=== PATIENT | female | born 1955 | race Caucasian/White ===

== ENCOUNTER 2024-03-18 09:31 | Day surgery (SDC) | payer MEDICARE, OTHER, SELFPAY ==
[2024-03-10 12:52] VITALS: BMI 31.8
[2024-03-18] VITALS (8 sets, daily range): BP systolic 125–174; BP diastolic 74–93; PULSE 69–82; RESP 10–16; TEMP 36.2–36.3; O2SAT 6–99
--- NOTE | 2024-03-18 | PATH_ITS ---
[facility] Accession Number: [id number] No. of containers..01 Tissue . 01 Material submitted: . fallopian tube - LEFT FALLOPIAN TUBE . 01 Diagnosis: A. LEFT FALLOPIAN TUBE, LEFT SALPINGECTOMY: Cross-sections of fallopian tube with atrophic changes. Negative for dysplasia or malignancy. [facility] 03/22/2024 1616 Local . 01 Electronically signed: . Laurie Ramos MD, Pathologist NPI- [id number] . 01 Gross description: . Received in formalin with two identifiers and left fallopian tube, is an irregular violaceous soft tissue fragment 1.6 x 0.9 x 0.6 cm. No fimbriae or distinct lumen is identified. The specimen is submitted entirely in cassette A1. ([id number]) /CJ 03/19/2024 2132 Local . 01 Pathologist provided ICD-10: Z90.722 . 01 CPT . 928803 Specimen Comment: A courtesy copy of this report has been sent to [phone] Performed at: [address] [address], [place], [place] [id number] MD Eric Ni MD Phone: [phone]
--- NOTE | 2024-03-18 | PATH_ITS ---
Note [facility] Accession Number: [id number] TESTS RESULT FLAG UNITS REF RANGE LAB Clinician Provided Cytology Information No. of containers..01 Other (Miscellaneous) Source: RIGHT OVARIAN CYST FLUID DIAGNOSIS: RIGHT OVARIAN CYST FLUID NEGATIVE FOR MALIGNANT CELLS. THIS INTERPRETATION INCLUDES EVALUATION OF A CELL BLOCK. COMMENT: Cyst fluid contains rare cluster of benign epithelial cells without atypia. Clinical correlation is advised. Pathologist ICD10: N83.209 Signed out by: Laurie Ramos MD, Pathologist NPI- [id number] Performed by: Bismark Garcia, Director Regulatory Affairs ([facility]) Gross description: 25 CC, YELLOW, CLEAR RECEIVED: FRESH IN BLUE CAP CONTAINER. /VDU 03/21/2024 0607 Local FLAG LEGEND: L-Low Normal,H-High Normal,LL-Alert Low,HH-Alert High <-Panic Low,>-Panic High,A-Abnormal,AA-Critical Abnormal Performed at: 01 =Z [facility] [address], [place] [address] Eric Ni MD, Performed at: [address] [facility] [facility], [place], [place] [id number] MD Eric Ni MD Phone: [phone]
[2024-03-18] MEDS: ACETAMINOPHEN 325 MG TABLET 975 MG PO (10:22)
[2024-03-18] MEDS: LACTATED RINGERS 1,000 ML 42 ML IV ×2 (10:22→12:12)
--- NOTE | 2024-03-18 10:25 | SUR.OPER ---
Lithotomy on padded OR bed, head on pillow, arms secured on padded arm boards at <90 degrees abduction. Legs secured in padded yellow fins stirrups.
--- NOTE | 2024-03-18 10:25 | SUR.OPER ---
Lithotomy on padded OR bed, head on pillow, arms tucked at side with gel pads. Legs secured in padded yellow fins stirrups.
--- NOTE | 2024-03-18 11:16 | PM.GYNHP.1 ---
History of Present Illness History of Present Illness Reason for admission: pelvic mass (ovarian cysts) Narrative: Tanisha Leonard is a 68 year old female G0 who presents for a laparoscopic bilateral salpingo-oophorectomy due to ovarian cysts. 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) Surgical History (Updated 03/10/24 @ 13:23 by Shagufta Valencia RN) Hx of colonoscopy Hx of foot surgery (~1999) Hx of tonsillectomy History of hysterectomy (1997) Social History household members: spouse Smoking Status: Never smoker alcohol intake: current Meds Home Medications and Allergies Home Medications Medication Instructions Recorded Confirmed Type acetaminophen 500 mg tablet 1,000 mg PO DAILY PRN Pain 03/10/24 03/18/24 History aspirin 81 mg tablet,delayed 81 mg PO DAILY 03/10/24 03/18/24 History release fexofenadine 180 mg tablet 180 mg PO DAILY PRN Seasonal 03/10/24 03/18/24 History allergies ibuprofen 200 mg tablet 400 - 600 mg PO BID PRN Pain 03/10/24 03/18/24 History omeprazole 20 mg tablet,delayed 20 mg PO DAILY 03/10/24 03/18/24 History release Allergies Allergy/AdvReac Type Severity Reaction Status Date / Time fentanyl Allergy Severe cardiac Verified 03/18/24 10:17 arrest midazolam [From Versed] Allergy Severe Cardiac Verified 03/18/24 10:17 arrest propofol Allergy Severe Cardiac Verified 03/18/24 10:17 arrest bacitracin Allergy Intermediate Rash Verified 03/18/24 10:17 [From Neosporin ([id number]-[id number])] neomycin Allergy Intermediate Rash Verified 03/18/24 10:17 [From Neosporin (yhh-nif-anbmy)] polymyxin B Allergy Intermediate Rash Verified 03/18/24 10:17 [From Neosporin ([id number]-cbx-chfgs)] erythromycin base Allergy Mild Diarrhea Verified 03/18/24 10:17 Sulfa (Sulfonamide AdvReac Severe Rash Verified 03/18/24 10:17 Antibiotics) diphenhydramine AdvReac Intermediate Swollen Verified 03/18/24 10:17 [From Benadryl] tongue pickles AdvReac Severe Swollen Uncoded 03/18/24 10:17 lips Exam Vital Signs (past 8 hours): - 03/18/24 10:18 Temperature 97.4 F L Pulse Rate 79 Respiratory Rate 16 Blood Pressure 174/93 H Pulse Oximetry 99 Oxygen Delivery Method Room Air Oxygen Delivery Method Room Air Narrative Exam Narrative: HEENT: No thyromegaly, no anterior cervical or supraclavicular lymphadenopathy. Lungs:Clear to auscultation bilaterally, no wheezes. Cardiovascular: Regular rate and rhythm, no murmurs, rubs, or gallops. Abdomen: Well-healed Pfannenstiel scar. No hepatosplenomegaly. No masses palpable. External genitalia: Normal Vagina: Normal Cervix: Absent Bimanual exam: No tenderness Extremities: No edema Assessment & Plan Assessment & Plan narrative: Assessment: 68-year-old 0 with ovarian cysts Plan: Laparoscopic bilateral salpingo-oophorectomy The risks, benefits, and alternatives to the procedure were explained to the patient. The risks including bleeding, infection, injury to the bowel, bladder, or ureters. She understands these risks and agrees to proceed. A full par Q was held and consent form was signed. Time-Based Coding :: [TOTAL MINUTES] spent with patient and on the chart (including review of chart, obtaining history, exam, reviewing outside data, placing orders, documenting exam and treatment plan, and counseling patient) on [DATE].
--- NOTE | 2024-03-18 11:19 | PM.PREOP ---
Pre-operative Note Interval Note History & Physical reviewed/Exam performed by Physician: Yes Changes to H&P: No H&P completed within 30 days and has changed as indicated here:: 03/18/24
[2024-03-18] MEDS: BUPIVACAINE 0.25% (PF) VIAL 30 ML INJ (12:13)
--- NOTE | 2024-03-18 12:46 | PM.GYNOP.1 ---
Operative Date/Time/Diagnoses Date of procedure: 03/18/24 Time of procedure: 12:47 Pre-op diagnosis: Ovarian cysts Post-op diagnosis: same Procedure & Clinicians Procedure: Procedures Operation Date: 03/18/24 11:00 Actual Procedure Side Surgeon p Diagnostic Laparoscopy, lysis of adhesions, and aspiration of right ovarian cyst Bilateral Ava Vila MD Indications: 68 year old G0 with a left complex ovarian cyst. Normal CA-125 Surgeon: Ava Vila Anesthesia Type: General and Local Operative Notes Findings: Uterus is surgically absent Left ovary enlarged to approximately 8 cm x 6 cm and multi-cystic; adhesed to the bowel and left pelvic sidewall Right ovary attached to the bowel, appendix, and right pelvic sidewall Right tube could not be visualized Left tube was visualized and removed Closure Type: primary Specimen(s): left tube and other (cyst fluid) Applied: catheter (in/out) Estimated blood loss (mL): 10 Blood products transfused: none Procedure in detail: after informed consent was obtained, the patient was taken to the operating room where she was placed in the dorsal supine position. After adequate general endotracheal anesthesia was achieved, she was placed in the dorsal lithotomy position, and prepped and draped in the usual sterile fashion. A time-out was performed. A moistened sponge stick was placed into the vagina. Attention was then turned to the abdomen where 6 cc of 0.5% Marcaine with epinephrine were injected in the umbilical fold. A 5 mm incision was made. The Veress needle was placed into the peritoneal cavity, and its placement confirmed by aspiration and drop test. The abdominal cavity was insufflated with 3.4 L of CO2. The Veress needle was removed, a 5 mm trocar was placed without difficulty. Two other incisions were made 4 cm lateral to the midline after transillumination to avoid vessels and 6 cc of 0.5% Marcaine with epinephrine were injected. Two other 5 mm trocars were placed under direct visualization. A probe was used to identify the right complex ovarian cyst. The cyst was grasped with an atraumatic grasper. Using endo Elpidio, an attempt was made to dissect the cyst / ovary away from the bowel and left pelvic sidewall. At 1 point an aspiration of a cyst area yielded 15 cc of clear fluid. The ovary was adherent to the bowel. The left tube was grasped and was removed using the power seal. On the right side the right ovary was adherent to the bowel and the pelvic sidewall. The appendix was also adhesed to the ovary. After attempts at dissection, a decision was made to abort the procedure. The instruments were removed from the abdomen after copious irrigation. The CO2 was allowed to escape. The trocars were removed. The incisions were repaired with 4-0 Monocryl in a subcuticular fashion. Steri-Strips and Allevyn dressings were placed. The moistened sponge stick was removed from the vagina. Sponge, lap, and instrument counts were correct x2. The patient tolerated the procedure well, and was taken to PACU in stable condition. Complications: none Post-operative Condition: stable Disposition: PACU Plan for aftercare: Home after recovery
[2024-03-18] MEDS: OXYCODONE IR 5 MG TABLET PO ×2 (13:17→14:06)
[2024-03-18] MEDS: ONDANSETRON 4 MG/2 ML INJ IV (13:27)
== END 2024-03-18 14:35 | disposition home or self-care (01) ==
PROVIDERS: Family Provider Family Medicine; PCP Physician Assistant; Referring Provider Obstetrics & Gynecology; Visit Provider Obstetrics & Gynecology
PROC: 0UT24ZZ Resection of Bilateral Ovaries, Percutaneous Endoscopic Approach (ICD-10-PCS; CPT 58661; principal; 2024-03-18 11:00)
DX: N83.202 Unspecified ovarian cyst, left side (principal); N73.6 Female pelvic peritoneal adhesions (postinfective)
CPT/HCPCS: 58661; 49322; J0330; J1100; J2405; J2704; J3010

== ENCOUNTER → 2024-08-29 14:54 | Outpatient (CLI) | payer MEDICARE, OTHER, SELFPAY ==
[2024-08-29 16:59] LABS: Cancer Antigen 125 8.1 U/mL (0-35)
== END ==
PROVIDERS: Family Provider Family Medicine; PCP Physician Assistant; Referring Provider Specialist; Visit Provider Specialist
DX: N83.202 Unspecified ovarian cyst, left side (principal); N83.292 Other ovarian cyst, left side
CPT/HCPCS: 36415; 86304

== ENCOUNTER → 2025-03-22 13:34 | Outpatient (CLI) | payer MEDICARE, OTHER, SELFPAY | PROVIDERS: Family Provider Family Medicine; PCP Physician Assistant; Referring Provider Obstetrics & Gynecology; Visit Provider Obstetrics & Gynecology | DX: N83.202 Unspecified ovarian cyst, left side (principal) | CPT/HCPCS: 36415; 86304 ==